=== PATIENT | female | born 1950 | race Caucasian/White ===

== ENCOUNTER 2020-07-03 11:45 | Emergency (ER) | payer MEDICARE, BC ==
[~2020-07-03] VITALS: Ht 162.6 cm; Wt 53.6 kg
[2020-07-03 11:50] VITALS: Ht 162.6 cm; Wt 53.6 kg
[2020-07-03] MEDS ORDERED: TIMOPTIC 0.5 % O5 ML EACH EYE (11:53)
[2020-07-03] MEDS ORDERED: ESTRACE2 MG PO (11:53)
[2020-07-03] MEDS ORDERED: XALATAN 0.0052.5 ML EACH EYE (11:53)
[2020-07-03] MEDS ORDERED: ACULAR 0.5 % OPH5 ML LEFT EYE (11:54)
[2020-07-03 12:24] LABS: BASOPHILS 0.1 % (0-2); EOSINOPHILS 1.2 % (0-7); HEMATOCRIT 40.4 % (36.0-48.0); IMMATURE GRANULOCYTES 0.3 % (0-5); LYMPHOCYTES 14.8 % (15-50); MCH 29.5 pg (26.0-34.0); MCHC 32.2 g/dL (31.0-37.0); MCV 91.8 fL (80.0-100.0); MEAN PLATELET VOLUME 9.6 fL (7.4-10.4); MONOCYTES 5.2 % (2-11); NEUTROPHILS 78.4 % (40-80); PLATELET COUNT 251 10x3/uL (130-400); RDW 13.7 % (11.5-14.5); WBC 9.9 10x3/uL (4.8-10.8)
[2020-07-03 12:41] LABS: CALC OSMOLALITY 281 mosm/kg (275-300); CALCIUM 9.1 mg/dL (8.5-10.1); CARBON DIOXIDE 30.4 mmol/L (21.0-32.0); CHLORIDE - SERUM 104 mmol/L (98-107); CREATININE - SERUM 0.7 mg/dL (0.6-1.3); GLUCOSE 100 mg/dL (74-106); POTASSIUM - SERUM 4.9 mmol/L (3.5-5.1); SODIUM 141 mmol/L (136-145); UREA NITROGEN 15 mg/dL (7-18); eGFR NON AFRICAN AMERICAN 88 mL/min (90-120)
[2020-07-03 12:43] LABS: BILIRUBIN NEGATIVE (NEGATIVE); GLUCOSE NEGATIVE (NEGATIVE); KETONE NEGATIVE (NEGATIVE); NITRITE NEGATIVE (NEGATIVE); UROBILINOGEN NORMAL (NORMAL)
[2020-07-03 12:49] LABS: ALBUMIN 3.6 g/dL (3.4-5.0); ALKALINE PHOSPHATASE 68 U/L (30-120); ALT (SGPT) 38 U/L (10-68); BILIRUBIN - TOTAL 0.27 mg/dL (0.2-1.3); LIPASE 217 U/L (73-393); PROTEIN - SERUM 6.5 g/dL (6.4-8.2)
[2020-07-03 12:51] LABS: TROPONIN-I < 0.017 ng/mL (0.000-0.060)
[2020-07-03] MEDS ORDERED: CHRONULAC30 ML PO ×2 (14:05→14:26)
[2020-07-03] MEDS ORDERED: FLUTICASONE PRO16 GM NASAL (14:26)
[2020-07-03 14:39] VITALS: BP 127/68
== END 2020-07-03 14:39 | disposition home or self-care (01) ==
LOC: D.ER 11:45
PROVIDERS: Family Medicine
DX: R51 Headache (principal); K59.00 Constipation, unspecified; H53.9 Unspecified visual disturbance; T85.698A Other mechanical complication of other specified internal prosthetic devices, implants and grafts, initial encounter; R10.30 Lower abdominal pain, unspecified